=== PATIENT | male | born 1950 | race African-American/Black ===

== ENCOUNTER 2017-10-18 17:54 | Emergency (ER) | payer MEDICARE, MEDICAID ==
[~2017-10-18] VITALS: Ht 175.3 cm; Wt 77.0 kg
[~2017-10-18 17:54] MED LIST: ALBU05; ASPI-785 PO; HYDR25TA PO; LISI-604 PO; NAPR375T PO
[2017-10-18] MEDS ORDERED: ACETAMINOPHEN 325MG TABLET PO STA (18:18)
[2017-10-18] MEDS ORDERED: ALBUTEROL (0.083%) 2.5MG/3ML NEB HHN STA (18:38)
[2017-10-18] MEDS ORDERED: METHYLPREDNISOLONE SOD SUCC 125 MG/2 ML VIAL IV STA (18:38)
[2017-10-18] MEDS ORDERED: IPRATROPIUM BROMIDE (0.02%) 0.5MG/2.5ML NEB HHN STA (18:38)
[2017-10-18] MEDS ORDERED: KETOROLAC 30MG/ML VIAL IV ONE (18:45)
[2017-10-18 18:52] LABS: BASOPHILS % 1.4 % (0.0-2.0); EOSINOPHILS % 1.8 % (0.0-5.0); HEMATOCRIT. 33.5 % (42.0-52.0); HEMOGLOBIN. 10.3 g/dL (14.0-18.0); LYMPHOCYTES % 30.1 % (20.0-50.0); MEAN CORPUSCULAR HEMOGLOBIN 20.6 pg (28.0-32.0); MEAN CORPUSCULAR VOLUME 66.7 fL (80.0-94.0); MEAN PLATELET VOLUME 8.6 fl (7.4-10.4); MONOCYTES % 6.4 % (2.0-8.0); NEUTROPHILS % 60.3 % (40.0-76.0); PLATELET 317 x1000/uL (130-400); RED BLOOD CELL COUNT 5.02 mill/uL (4.7-6.1); RED CELL DISTRIBUTION WIDTH 18.6 % (11.6-14.6)
[2017-10-18 18:53] LABS: CHLORIDE 101 mEq/L (98-107)
[2017-10-18] MEDS ORDERED: POTASSIUM CHLORIDE 20MEQ TABLET SR PO ONE (19:15)
[2017-10-18 19:23] LABS: PLATELET ESTIMATE NORMAL
[2017-10-18 19:41] VITALS: BP 136/78
== END 2017-10-18 20:05 | disposition home or self-care (01) ==
LOC: ER 17:54
DX: J45.901 Unspecified asthma with (acute) exacerbation (principal); M17.0 Bilateral primary osteoarthritis of knee; I10 Essential (primary) hypertension; Z87.891 Personal history of nicotine dependence; Z79.82 Long term (current) use of aspirin
CPT/HCPCS: 36415; 71045; 80053; 85025; 94644; 96374; 96375; 99285; J1885; J2930; J7611

== ENCOUNTER 2017-11-02 22:32 | Emergency (ER) | payer MEDICARE, MEDICAID ==
[~2017-11-02] VITALS: Ht 175.3 cm; Wt 79.0 kg
[2017-11-03] MEDS ORDERED: ALBUTEROL (0.083%) 2.5MG/3ML NEB HHN STA ×2 (00:44→01:47)
[2017-11-03] MEDS ORDERED: METHYLPREDNISOLONE SOD SUCC 125 MG/2 ML VIAL IV STA (00:44)
[2017-11-03] MEDS ORDERED: IPRATROPIUM BROMIDE (0.02%) 0.5MG/2.5ML NEB HHN STA ×2 (00:44→01:47)
[2017-11-03] MEDS ORDERED: MAGNESIUM 2 G PREMIX 50 ML IV ONE (00:45)
[2017-11-03 03:15] VITALS: BP 152/85
== END 2017-11-03 03:33 | disposition home or self-care (01) ==
LOC: ER 22:32
DX: J45.901 Unspecified asthma with (acute) exacerbation (principal); I10 Essential (primary) hypertension; M19.90 Unspecified osteoarthritis, unspecified site; I51.7 Cardiomegaly; Z79.82 Long term (current) use of aspirin
CPT/HCPCS: 71045; 93005; 94640; 96365; 96375; 99284; J2930; J3475; J7611

== ENCOUNTER 2018-01-21 20:40 | Emergency (ER) | payer MEDICARE, MEDICAID ==
[~2018-01-21] VITALS: Ht 172.7 cm; Wt 82.0 kg
[2018-01-21] MEDS ORDERED: METHYLPREDNISOLONE SOD SUCC 125 MG/2 ML VIAL IV STA (23:49)
[2018-01-21] MEDS ORDERED: ONDANSETRON HCL 4MG/2ML VIAL IV STA (23:49)
[2018-01-21] MEDS ORDERED: IPRATROPIUM BROMIDE (0.02%) 0.5MG/2.5ML NEB HHN STA (23:49)
[2018-01-21] MEDS ORDERED: ALBUTEROL (0.083%) 2.5MG/3ML NEB HHN STA (23:49)
[2018-01-22] MEDS ORDERED: MAGNESIUM/ALUMINUM HYDROXIDE/SIMETHICONE 30ML UDC PO ONE
[2018-01-22] MEDS ORDERED: FAMOTIDINE 20MG/2ML VIAL IV ONE
[2018-01-22 00:17] LABS: BASOPHILS % 0.5 % (0.0-2.0); EOSINOPHILS % 0.6 % (0.0-5.0); HEMATOCRIT. 43.4 % (42.0-52.0); HEMOGLOBIN. 13.4 g/dL (14.0-18.0); LYMPHOCYTES % 14.6 % (20.0-50.0); MEAN CORPUSCULAR VOLUME 71.2 fL (80.0-94.0); MEAN PLATELET VOLUME 8.2 fl (7.4-10.4); MONOCYTES % 3.8 % (2.0-8.0); NEUTROPHILS % 80.5 % (40.0-76.0); PLATELET 288 x1000/uL (130-400); RED CELL DISTRIBUTION WIDTH 19.1 % (11.6-14.6)
[2018-01-22 00:23] LABS: CHLORIDE 98 mEq/L (98-107)
[2018-01-22 05:11] VITALS: BP 142/85
== END 2018-01-22 06:35 | disposition home or self-care (01) ==
LOC: ER 20:40
DX: J45.901 Unspecified asthma with (acute) exacerbation (principal); R10.9 Unspecified abdominal pain; I10 Essential (primary) hypertension; Z79.82 Long term (current) use of aspirin
CPT/HCPCS: 36415; 71045; 80053; 83605; 83690; 83880; 84484; 85025; 87040; 93005; 94640; 96374; 96375; 99285; J2405; J2930; J3490; J7611

== ENCOUNTER 2019-04-19 20:54 | Emergency (ER) | payer MEDICARE, MEDICAID ==
[~2019-04-19] VITALS: Ht 175.3 cm; Wt 76.0 kg
[2019-04-19] MEDS ORDERED: IPRATROPIUM BROMIDE (0.02%) 0.5MG/2.5ML NEB HHN STA ×2 (21:33→22:53)
[2019-04-19] MEDS ORDERED: PREDNISONE 20MG TABLET PO STA (21:33)
[2019-04-19] MEDS ORDERED: ALBUTEROL (0.083%) 2.5MG/3ML NEB HHN STA ×2 (21:33→22:53)
[2019-04-19 22:16] LABS: BASOPHILS % 1.3 % (0.0-2.0); EOSINOPHILS % 3.5 % (0.0-5.0); HEMATOCRIT. 43.4 % (42.0-52.0); HEMOGLOBIN. 14.5 g/dL (14.0-18.0); LYMPHOCYTES % 37.7 % (20.0-50.0); MEAN CORPUSCULAR HEMOGLOBIN 28.3 pg (28.0-32.0); MEAN CORPUSCULAR VOLUME 84.5 fL (80.0-94.0); MEAN PLATELET VOLUME 8.9 fl (7.4-10.4); MONOCYTES % 6.1 % (2.0-8.0); NEUTROPHILS % 51.4 % (40.0-76.0); PLATELET 211 x1000/uL (130-400); RED BLOOD CELL COUNT 5.13 mill/uL (4.7-6.1); RED CELL DISTRIBUTION WIDTH 14.8 % (11.6-14.6)
[2019-04-19 22:21] LABS: CHLORIDE 104 mEq/L (98-107)
[2019-04-19] MEDS ORDERED: POTASSIUM CHLORIDE 20MEQ TABLET SR PO SCH (22:45)
[2019-04-19 23:40] VITALS: BP 155/95
== END 2019-04-19 23:40 | disposition home or self-care (01) ==
LOC: ER 20:54
DX: J44.1 Chronic obstructive pulmonary disease with (acute) exacerbation (principal); E87.6 Hypokalemia; I10 Essential (primary) hypertension; M19.90 Unspecified osteoarthritis, unspecified site; Z79.82 Long term (current) use of aspirin
CPT/HCPCS: 36415; 71045; 80053; 83880; 84484; 85025; 99284; J7512; J7611

== ENCOUNTER 2019-06-16 10:20 | Emergency (ER) | payer MEDICARE, MEDICAID ==
[~2019-06-16] VITALS: Ht 175.3 cm; Wt 78.0 kg
[2019-06-16] MEDS ORDERED: ALBUTEROL (0.083%) 2.5MG/3ML NEB HHN STA ×3 (11:18→13:01)
[2019-06-16] MEDS ORDERED: IPRATROPIUM BROMIDE (0.02%) 0.5MG/2.5ML NEB HHN STA ×3 (11:18→13:01)
[2019-06-16] MEDS ORDERED: PREDNISONE 20MG TABLET PO STA (11:26)
[2019-06-16] MEDS ORDERED: IBUPROFEN 600MG TABLET PO ONE (11:30)
[2019-06-16] MEDS ORDERED: TETANUS, DIPHTHERIA, PERTUSSIS VAC/PF 0.5ML (>7YR OLD) IM ONE (11:30)
[2019-06-16 13:51] VITALS: BP 151/82
== END 2019-06-16 15:24 | disposition home or self-care (01) ==
LOC: ER 10:20
DX: J45.901 Unspecified asthma with (acute) exacerbation (principal); M25.422 Effusion, left elbow; I10 Essential (primary) hypertension; F17.200 Nicotine dependence, unspecified, uncomplicated; M19.90 Unspecified osteoarthritis, unspecified site; Y08.89XA Assault by other specified means, initial encounter; Y93.9 Activity, unspecified; Y92.89 Other specified places as the place of occurrence of the external cause
CPT/HCPCS: 70450; 70486; 71045; 73090; 73200; 90471; 90715; 94640; 99284; J7512; J7611

== ENCOUNTER 2020-02-08 20:14 | Emergency (ER) | payer MEDICARE, MEDICAID ==
[~2020-02-08] VITALS: Ht 175.3 cm; Wt 77.0 kg
[2020-02-09 00:45] LABS: BASOPHILS % 0.7 % (0.0-2.0); EOSINOPHILS % 1.9 % (0.0-5.0); HEMATOCRIT. 45.7 % (42.0-52.0); HEMOGLOBIN. 15.1 g/dL (14.0-18.0); LYMPHOCYTES % 20.6 % (20.0-50.0); MEAN CORPUSCULAR HEMOGLOBIN 28.1 pg (28.0-32.0); MEAN PLATELET VOLUME 7.9 fl (7.4-10.4); MONOCYTES % 6.6 % (2.0-8.0); NEUTROPHILS % 70.2 % (40.0-76.0); PLATELET 231 x1000/uL (130-400); RED BLOOD CELL COUNT 5.37 mill/uL (4.7-6.1); RED CELL DISTRIBUTION WIDTH 15.6 % (11.6-14.6)
[2020-02-09 00:48] LABS: CHLORIDE 99 mEq/L (98-107)
[2020-02-09 03:50] VITALS: BP 160/91
== END 2020-02-09 04:03 | disposition short-term general hospital (02) ==
LOC: ER 20:14
DX: S05.8X2A Other injuries of left eye and orbit, initial encounter (principal); I10 Essential (primary) hypertension; J45.909 Unspecified asthma, uncomplicated; M19.90 Unspecified osteoarthritis, unspecified site; Y08.89XA Assault by other specified means, initial encounter; Y93.9 Activity, unspecified; Y92.9 Unspecified place or not applicable; Z79.82 Long term (current) use of aspirin; Z03.818 Encounter for observation for suspected exposure to other biological agents ruled out
CPT/HCPCS: 36415; 70450; 70486; 72125; 80048; 85025; 93005; 99285; C9803; U0003

== ENCOUNTER 2020-02-14 20:48 | Emergency (ER) | payer MEDICARE, MEDICAID ==
[~2020-02-14] VITALS: Ht 175.3 cm; Wt 79.0 kg
[2020-02-14] MEDS ORDERED: ALBUTEROL (0.083%) 2.5MG/3ML NEB HHN STA (21:13)
[2020-02-14] MEDS ORDERED: PREDNISONE 20MG TABLET PO STA (21:13)
[2020-02-14] MEDS ORDERED: IPRATROPIUM BROMIDE (0.02%) 0.5MG/2.5ML NEB HHN STA (21:13)
[2020-02-14] MEDS ORDERED: FLUORESCEIN SODIUM 1MG/STRIP LEFTEYE ONE (21:15)
[2020-02-14] MEDS ORDERED: IBUPROFEN 600MG TABLET PO ONE (21:15)
[2020-02-14] MEDS ORDERED: TETRACAINE 0.5% OPHTH DROPS 4ML LEFTEYE ONE (21:15)
[2020-02-14] MEDS ORDERED: HYDROCODONE/ACETAMINOPHEN 5/325MG TABLET PO ONE (23:15)
[2020-02-14 23:40] VITALS: BP 141/83
== END 2020-02-15 00:40 | disposition home or self-care (01) ==
LOC: ER 20:48
DX: H57.12 Ocular pain, left eye (principal); J44.1 Chronic obstructive pulmonary disease with (acute) exacerbation; H27.10 Unspecified dislocation of lens; I10 Essential (primary) hypertension; Z79.899 Other long term (current) drug therapy
CPT/HCPCS: 71045; 93005; 94644; 99285; J7512

== ENCOUNTER 2020-06-04 17:57 | Emergency (ER) | payer MEDICARE, MEDICAID ==
[~2020-06-04] VITALS: Ht 175.3 cm; Wt 80.0 kg
[2020-06-04 18:00] VITALS: BP 144/95
== END 2020-06-04 20:26 | disposition left against medical advice (07) ==
LOC: ER 17:57
DX: J45.909 Unspecified asthma, uncomplicated (principal); I49.9 Cardiac arrhythmia, unspecified; Z53.21 Procedure and treatment not carried out due to patient leaving prior to being seen by health care provider
CPT/HCPCS: 93005

== ENCOUNTER 2020-12-18 13:34 | Emergency (ER) | payer MEDICARE, MEDICAID ==
[~2020-12-18] VITALS: Ht 180.3 cm; Wt 82.0 kg
[~2020-12-18 13:34] MED LIST changes: -LISI-604 PO; +LISI20TA31 PO
[2020-12-18 13:42] VITALS: BP 140/70
== END 2020-12-18 14:23 | disposition left against medical advice (07) ==
LOC: ER 13:34
DX: Z53.21 Procedure and treatment not carried out due to patient leaving prior to being seen by health care provider (principal)
CPT/HCPCS: 93005

== ENCOUNTER 2022-08-24 08:11 | Inpatient (IN) | payer OTHER, MEDICAID ==
[~2022-08-24] VITALS: Ht 175.3 cm; Wt 70.8 kg
[2022-08-24 09:44] LABS: HEMATOCRIT 42.3 % (42.0-52.0); HEMOGLOBIN 13.6 g/dL (14.0-18.0); MEAN CORPUSCULAR HEMOGLOBIN 24.7 pg (28.0-32.0); PLATELET 458 x1000/uL (130-400); RED CELL DISTRIBUTION WIDTH 14.9 % (11.6-14.6)
[2022-08-24 09:50] LABS: CHLORIDE 102 mEq/L (98-107)
[2022-08-24] MEDS ORDERED: KETOROLAC 30MG/ML VIAL IV NR (11:00)
[2022-08-24 11:41] LABS: CLARITY URINE CLEAR (CLEAR); COLOR URINE YELLOW (YELLOW); KETONES URINE NEGATIVE (NEGATIVE); LEUKOCYTE ESTERASE URINE TRACE (NEGATIVE); NITRITE URINE NEGATIVE (NEGATIVE); OCCULT BLOOD URINE NEGATIVE (NEGATIVE); PROTEIN URINE 1+ (NEGATIVE)
[2022-08-24] MEDS ORDERED: FAMOTIDINE 20MG/2ML VIAL IV ONE (12:00)
[2022-08-24] MEDS ORDERED: ONDANSETRON HCL 4MG/2ML INJ IV ONE (12:00)
[2022-08-24] MEDS ORDERED: MORPHINE SULFATE 2 MG/ML CPJ (NOT FOR IM USE) IV SCH (13:15)
[2022-08-24] MEDS ORDERED: SODIUM CHLORIDE 0.9% 1,000 ML IV ONE (13:15)
[2022-08-24] MEDS ORDERED: FAMOTIDINE 20MG/2ML VIAL IV NR (14:40)
[2022-08-24] MEDS ORDERED: ONDANSETRON HCL 4MG/2ML INJ IV NR (14:41)
[2022-08-24 16:00] VITALS: BP 158/95
[2022-08-24] MEDS ORDERED: CEFTRIAXONE 1 G PREMIX 50 ML IV SCH (16:15)
[2022-08-24] MEDS ORDERED: ONDANSETRON HCL 4MG/2ML INJ IV PRN (16:15)
[2022-08-24] MEDS ORDERED: IPRATROPIUM/ALBUTEROL 0.5-3(2.5)MG/3ML NEB NEB PRN (16:15)
[2022-08-24] MEDS ORDERED: ACETAMINOPHEN 325MG TABLET PO PRN (16:15)
[2022-08-24] MEDS: SODIUM CHLORIDE 0.9% 1,000 ML IV SCH (17:43)
[2022-08-24] MEDS: ENOXAPARIN 40MG/0.4ML SYR SUBCUT SCH (17:52)
[2022-08-24] MEDS ORDERED: METRONIDAZOLE 500 MG PREMIX 100 ML IV SCH (18:00)
[2022-08-24 18:26] VITALS: BP 158/95
[2022-08-24 20:00] VITALS: BP 158/79
[2022-08-24] MEDS: CEFTRIAXONE 1,000 MG in DEXTROSE 5% WATER 50 ML IV SCH (20:11)
[2022-08-24] MEDS: METRONIDAZOLE 500 MG PREMIX 100 ML IV SCH (21:00)
[2022-08-25] VITALS: BP 154/73
[2022-08-25] MEDS: SODIUM CHLORIDE 0.9% 1,000 ML IV SCH ×3 (00:36→16:55)
[2022-08-25] MEDS ORDERED: HYDRALAZINE 20MG/ML VIAL IV PRN (01:45)
[2022-08-25] MEDS ORDERED: HYDRALAZINE 10 MG in SODIUM CHLORIDE 0.9% 49.5 ML IV PRN (02:00)
[2022-08-25] MEDS: MORPHINE SULFATE 2 MG/ML CPJ (NOT FOR IM USE) IV PRN ×4 (02:09→21:23)
[2022-08-25] MEDS: METRONIDAZOLE 500 MG PREMIX 100 ML IV SCH ×3 (03:13→21:00)
[2022-08-25 04:00] VITALS: BP 138/72
[2022-08-25 05:21] LABS: CHLORIDE 102 mEq/L (98-107)
[2022-08-25 06:09] LABS: BASOPHILS % 0.3 % (0.0-2.0); EOSINOPHILS % 0.8 % (0.0-5.0); HEMATOCRIT. 39.6 % (42.0-52.0); HEMOGLOBIN. 13.1 g/dL (14.0-18.0); LYMPHOCYTES % 9.2 % (20.0-50.0); MEAN CORPUSCULAR HEMOGLOBIN 25.4 pg (28.0-32.0); MEAN CORPUSCULAR VOLUME 76.3 fL (80.0-94.0); MEAN PLATELET VOLUME 7.9 fl (7.4-10.4); MONOCYTES % 5.1 % (2.0-8.0); NEUTROPHILS % 84.6 % (40.0-76.0); PLATELET 412 x1000/uL (130-400); RED BLOOD CELL COUNT 5.18 mill/uL (4.7-6.1)
[2022-08-25 08:00] VITALS: BP 95/41
[2022-08-25 12:25] VITALS: BP 148/82
[2022-08-25 16:00] VITALS: BP 153/77
[2022-08-25] MEDS: CEFTRIAXONE 1,000 MG in DEXTROSE 5% WATER 50 ML IV SCH (17:56)
[2022-08-25] MEDS: ENOXAPARIN 40MG/0.4ML SYR SUBCUT SCH (17:56)
[2022-08-26] MEDS: SODIUM CHLORIDE 0.9% 1,000 ML IV SCH ×4 (00:23→23:58)
[2022-08-26] MEDS: METRONIDAZOLE 500 MG PREMIX 100 ML IV SCH ×3 (03:51→19:56)
[2022-08-26 04:00] VITALS: BP 149/92
[2022-08-26] MEDS: MORPHINE SULFATE 2 MG/ML CPJ (NOT FOR IM USE) IV PRN ×2 (06:52→18:03)
[2022-08-26 09:23] LABS: BASOPHILS % 0.2 % (0.0-2.0); EOSINOPHILS % 0.4 % (0.0-5.0); HEMATOCRIT. 38.5 % (42.0-52.0); HEMOGLOBIN. 12.6 g/dL (14.0-18.0); LYMPHOCYTES % 12.3 % (20.0-50.0); MEAN CORPUSCULAR HEMOGLOBIN 24.9 pg (28.0-32.0); MEAN CORPUSCULAR VOLUME 76.3 fL (80.0-94.0); MEAN PLATELET VOLUME 7.8 fl (7.4-10.4); MONOCYTES % 7.4 % (2.0-8.0); NEUTROPHILS % 79.7 % (40.0-76.0); PLATELET 378 x1000/uL (130-400); RED BLOOD CELL COUNT 5.05 mill/uL (4.7-6.1)
[2022-08-26 09:25] LABS: CHLORIDE 101 mEq/L (98-107)
[2022-08-26 12:00] VITALS: BP 119/82
[2022-08-26 16:00] VITALS: BP 145/87
[2022-08-26] MEDS: CEFTRIAXONE 1,000 MG in DEXTROSE 5% WATER 50 ML IV SCH (18:10)
[2022-08-26 20:00] VITALS: BP 134/72
[2022-08-27] VITALS: BP 125/63
[2022-08-27 04:00] VITALS: BP 118/68
[2022-08-27] MEDS: METRONIDAZOLE 500 MG PREMIX 100 ML IV SCH (04:26)
[2022-08-27 11:25] VITALS: BP 139/73
== END 2022-08-27 11:56 | disposition home or self-care (01) | DRG 389 ==
LOC: ER 09:05 → 6EST 14:42
PROVIDERS: ADMIT Internal Medicine; ATTEND Internal Medicine
DX: K56.609 Unspecified intestinal obstruction, unspecified as to partial versus complete obstruction (principal); K57.92 Diverticulitis of intestine, part unspecified, without perforation or abscess without bleeding; N39.0 Urinary tract infection, site not specified; I10 Essential (primary) hypertension; J45.20 Mild intermittent asthma, uncomplicated; M19.90 Unspecified osteoarthritis, unspecified site
CPT/HCPCS: 36415; 74018; 74177; 80048; 80053; 81003; 83605; 85025; 85027; 99285; J0696; J1650; J1885; J2270; J2405; J3490; J7060

== ENCOUNTER 2022-10-02 19:16 | Inpatient (IN) | payer MEDICARE, MEDICAID ==
[~2022-10-02] VITALS: Ht 175.3 cm; Wt 70.3 kg
[2022-10-02] MEDS ORDERED: MORPHINE SULFATE 4 MG/ML CPJ (NOT FOR IM USE) IV ONE (21:00)
[2022-10-02] MEDS ORDERED: PIPERACILLIN/TAZOBACTAM 3.375GM/50ML PREMIX IV ONE (22:00)
[2022-10-02] MEDS ORDERED: PIPERACILLIN/TAZOBACTAM 3.375G in DEXT 5% WATER 50ML IV NR (22:00)
[2022-10-02] MEDS ORDERED: VANCOMYCIN 1G PREMIX 200 ML IV SCH (22:00)
[2022-10-02 22:48] LABS: BASOPHILS % 0.4 % (0.0-2.0); CHLORIDE 98 mEq/L (98-107); EOSINOPHILS % 0.8 % (0.0-5.0); HEMATOCRIT. 28.7 % (42.0-52.0); HEMOGLOBIN. 9.4 g/dL (14.0-18.0); LYMPHOCYTES % 7.8 % (20.0-50.0); MEAN CORPUSCULAR HEMOGLOBIN 24.8 pg (28.0-32.0); MEAN CORPUSCULAR VOLUME 75.8 fL (80.0-94.0); MEAN PLATELET VOLUME 8.1 fl (7.4-10.4); MONOCYTES % 5.4 % (2.0-8.0); NEUTROPHILS % 85.6 % (40.0-76.0); PLATELET 377 x1000/uL (130-400); RED BLOOD CELL COUNT 3.78 mill/uL (4.7-6.1); RED CELL DISTRIBUTION WIDTH 16.5 % (11.6-14.6)
[2022-10-03 00:52] LABS: CLARITY URINE CLEAR (CLEAR); COLOR URINE YELLOW (YELLOW); KETONES URINE TRACE (NEGATIVE); LEUKOCYTE ESTERASE URINE NEGATIVE (NEGATIVE); NITRITE URINE NEGATIVE (NEGATIVE); OCCULT BLOOD URINE NEGATIVE (NEGATIVE); PROTEIN URINE TRACE (NEGATIVE); SPECIFIC GRAVITY URINE 1.013 (1.005-1.030)
[2022-10-03] MEDS ORDERED: IOHEXOL-300 100 ML BOTTLE ONE (01:30)
[2022-10-03 09:20] VITALS: BP 104/63
[2022-10-03] MEDS ORDERED: IPRATROPIUM/ALBUTEROL 0.5-3(2.5)MG/3ML NEB HHN PRN (11:15)
[2022-10-03] MEDS ORDERED: ACETAMINOPHEN 325MG TABLET PO PRN (11:15)
[2022-10-03] MEDS ORDERED: ONDANSETRON HCL 4MG/2ML INJ IV PRN (11:15)
[2022-10-03] MEDS ORDERED: PIPERACILLIN/TAZ 3.375G PREMIX 50 ML IV SCH (11:15)
[2022-10-03 11:55] VITALS: BP 112/70
[2022-10-03] MEDS: DEXT 5%/0.45% NACL 1000ML 1,000 ML IV SCH ×2 (12:03→21:25)
[2022-10-03] MEDS: PIPERACILLIN/TAZOBACTAM 3.375 G in DEXTROSE 5% WATER 50 ML IV SCH ×2 (13:40→23:04)
[2022-10-03 15:45] VITALS: BP 117/59
[2022-10-03 16:31] LABS: *AMPHETAMINES SCREEN URINE NEGATIVE (NEGATIVE); *BARBITURATES SCREEN URINE NEGATIVE (NEGATIVE); *BENZODIAZEPINES SCREEN URINE NEGATIVE (NEGATIVE); *COCAINE SCREEN URINE NEGATIVE (NEGATIVE); CANNABINOID URINE SCREEN NEGATIVE (NEGATIVE); METHADONE URINE SCREEN NEGATIVE (NEGATIVE); OPIATES URINE SCREEN PRESUMTIVE POSITIVE (NEGATIVE); PHENCYCLIDINE URINE SCREEN NEGATIVE (NEGATIVE)
[2022-10-03 16:41] LABS: PARTIAL THROMBOPLASTIN TIME 33.3 sec (23.4-31.0); PROTHROMBIN TIME 11.1 sec (9.6-11.0)
[2022-10-03] MEDS: MORPHINE SULFATE 2 MG/ML CPJ (NOT FOR IM USE) IV PRN ×2 (16:54→21:28)
[2022-10-03 17:04] LABS: HEPATITIS B SURFACE ANTIGEN NEGATIVE
[2022-10-03] MEDS ORDERED: NALOXONE HCL 0.4MG/ML VIAL IV PRN (19:15)
[2022-10-03] MEDS ORDERED: POTASSIUM CHLORIDE 20MEQ TABLET SR PO NR (19:15)
[2022-10-03 20:00] VITALS: BP 109/63
[2022-10-03] MEDS ORDERED: KCL 20MEQ/100ML PREMIX 100 ML IV NR (21:30)
[2022-10-04] VITALS: BP 107/62
[2022-10-04 01:47] LABS: CHLORIDE 100 mEq/L (98-107)
[2022-10-04 02:49] LABS: BASOPHILS % 0.7 % (0.0-2.0); EOSINOPHILS % 3.1 % (0.0-5.0); HEMATOCRIT. 30.3 % (42.0-52.0); LYMPHOCYTES % 15.9 % (20.0-50.0); MEAN CORPUSCULAR HEMOGLOBIN 24.7 pg (28.0-32.0); MEAN PLATELET VOLUME 8.2 fl (7.4-10.4); NEUTROPHILS % 74.3 % (40.0-76.0); PLATELET 398 x1000/uL (130-400); RED BLOOD CELL COUNT 4.04 mill/uL (4.7-6.1); RED CELL DISTRIBUTION WIDTH 16.2 % (11.6-14.6)
[2022-10-04 04:00] VITALS: BP 106/66
[2022-10-04] MEDS: PIPERACILLIN/TAZOBACTAM 3.375 G in DEXTROSE 5% WATER 50 ML IV SCH ×3 (05:21→21:50)
[2022-10-04 06:24] LABS: BASOPHILS % 0.6 % (0.0-2.0); EOSINOPHILS % 3.6 % (0.0-5.0); HEMATOCRIT. 32.8 % (42.0-52.0); HEMOGLOBIN. 10.8 g/dL (14.0-18.0); LYMPHOCYTES % 12.1 % (20.0-50.0); MEAN CORPUSCULAR HEMOGLOBIN 25.6 pg (28.0-32.0); MEAN CORPUSCULAR VOLUME 77.8 fL (80.0-94.0); MEAN PLATELET VOLUME 7.6 fl (7.4-10.4); MONOCYTES % 7.4 % (2.0-8.0); NEUTROPHILS % 76.3 % (40.0-76.0); PLATELET 410 x1000/uL (130-400); RED BLOOD CELL COUNT 4.22 mill/uL (4.7-6.1); RED CELL DISTRIBUTION WIDTH 16.2 % (11.6-14.6)
[2022-10-04 08:00] VITALS: BP 104/66
[2022-10-04] MEDS: DEXT 5%/0.45% NACL 1000ML 1,000 ML IV SCH ×2 (08:20→17:08)
[2022-10-04 12:00] VITALS: BP 107/65
[2022-10-04] MEDS: MORPHINE SULFATE 2 MG/ML CPJ (NOT FOR IM USE) IV PRN (15:18)
[2022-10-04 15:50] VITALS: BP 124/60
[2022-10-04 20:00] VITALS: BP 131/76
[2022-10-05] VITALS: BP 103/64
[2022-10-05 04:00] VITALS: BP 116/60
[2022-10-05] MEDS: PIPERACILLIN/TAZOBACTAM 3.375 G in DEXTROSE 5% WATER 50 ML IV SCH ×3 (05:06→21:25)
[2022-10-05] MEDS ORDERED: LIDOCAINE HCL 1% 10 MG/ML 10ML VIAL ONE (07:49)
[2022-10-05] MEDS ORDERED: IOHEXOL-300 100 ML BOTTLE ONE (08:04)
[2022-10-05] MEDS ORDERED: MIDAZOLAM HCL 5 MG/5 ML VIAL ONE (08:13)
[2022-10-05] MEDS ORDERED: FENTANYL CITRATE/PF 50MCG/ML 2ML VIAL ONE (08:13)
[2022-10-05] MEDS: MORPHINE SULFATE 2 MG/ML CPJ (NOT FOR IM USE) IV PRN ×2 (11:06→18:18)
[2022-10-05 12:00] VITALS: BP 123/75
[2022-10-05] MEDS: DEXT 5%/0.45% NACL 1000ML 1,000 ML IV SCH ×2 (13:08→22:15)
[2022-10-05 16:00] VITALS: BP 137/86
[2022-10-05] MEDS ORDERED: POTASSIUM CHLORIDE 20MEQ TABLET SR PO NR (16:45)
[2022-10-05 20:00] VITALS: BP 138/88
[2022-10-06] VITALS: BP 130/70
[2022-10-06] MEDS: MORPHINE SULFATE 2 MG/ML CPJ (NOT FOR IM USE) IV PRN (01:05)
[2022-10-06 04:00] VITALS: BP 130/68
[2022-10-06] MEDS: PIPERACILLIN/TAZOBACTAM 3.375 G in DEXTROSE 5% WATER 50 ML IV SCH ×2 (05:05→14:33)
[2022-10-06 08:02] VITALS: BP 116/63
[2022-10-06] MEDS: DEXT 5%/0.45% NACL 1000ML 1,000 ML IV SCH (10:19)
[2022-10-06 11:38] VITALS: BP 111/68
[2022-10-06] MEDS ORDERED: LEVO-65 MT (13:44)
[2022-10-06] MEDS ORDERED: METR-167 MT (13:44)
[2022-10-06] MEDS ORDERED: HYDR-4001 MT (13:50)
[2022-10-06 14:05] VITALS: BP 125/68
[2022-10-06 15:47] VITALS: BP 126/70
== END 2022-10-06 16:25 | disposition home or self-care (01) | DRG 871 ==
LOC: ER 19:18 → 7WST 22:49 → EDBEDREQ 10-03 00:16 → ENRESERV 10-03 06:55
PROVIDERS: ADMIT Internal Medicine; ATTEND Internal Medicine
PROC: 0W9G30Z Drainage of Peritoneal Cavity with Drainage Device, Percutaneous Approach (ICD-10-PCS; principal; 2022-10-05)
DX: A41.9 Sepsis, unspecified organism (principal); K65.1 Peritoneal abscess; E44.1 Mild protein-calorie malnutrition; E87.1 Hypo-osmolality and hyponatremia; N17.9 Acute kidney failure, unspecified; D64.9 Anemia, unspecified; I10 Essential (primary) hypertension; J45.909 Unspecified asthma, uncomplicated; M19.90 Unspecified osteoarthritis, unspecified site
CPT/HCPCS: 36415; 74176; 74177; 77012; 80053; 80305; 81003; 83605; 83880; 84145; 84484; 85025; 86803; 87077; 87186; 87340; 93005; 99152; 99153; 99291; C1769; J2250; J2270; J2543; J3010; J3370; J3480; J3490; J7060; Q9967; G0500

== ENCOUNTER 2022-10-08 17:31 | Emergency (ER) | payer MEDICARE, MEDICAID ==
[~2022-10-08] VITALS: Ht 175.3 cm; Wt 73.0 kg
[~2022-10-08 17:31] MED LIST changes: +HYDR-4001 MT; +LEVO-65 MT; +METR-167 MT
[2022-10-08 18:23] VITALS: BP 131/99
== END 2022-10-08 22:48 | disposition home or self-care (01) ==
LOC: ER 17:31
DX: K63.0 Abscess of intestine (principal); I10 Essential (primary) hypertension; J45.909 Unspecified asthma, uncomplicated; Z98.890 Other specified postprocedural states
CPT/HCPCS: 99281

== ENCOUNTER 2022-10-16 09:58 | Emergency (ER) | payer MEDICARE, MEDICAID ==
[~2022-10-16] VITALS: Ht 175.3 cm; Wt 72.7 kg
[2022-10-16 11:05] VITALS: BP 122/78
== END 2022-10-16 11:14 | disposition home or self-care (01) ==
LOC: ER 09:58
DX: L02.01 Cutaneous abscess of face (principal); J45.909 Unspecified asthma, uncomplicated; I10 Essential (primary) hypertension; Z48.00 Encounter for change or removal of nonsurgical wound dressing; Z79.899 Other long term (current) drug therapy; Z79.82 Long term (current) use of aspirin
CPT/HCPCS: 99281